=== PATIENT | female | born 1995 | race Caucasian/White ===

== ENCOUNTER 2019-06-09 11:37 | Emergency (ER) | payer BC ==
[~2019-06-09] VITALS: Ht 160 cm; Wt 61.2 kg
[2019-06-09 11:37] VITALS: BP_SYST 118
--- NOTE | 2019-06-09 11:45 | NUR ---
Patient triaged and placed in waiting room. VSS and patient appears in no acute distress at this time. Accompanied by SELF, awaiting available bed, and MD notified of need for MSE.
--- NOTE | 2019-06-09 13:05 | NUR ---
BROUGHT BACK TO [facility] BED AND DR FREEMAN AT BEDSIDE FOR EVALUATION
[2019-06-09 13:31] VITALS: BP_SYST 118
--- NOTE | 2019-06-09 13:31 | NUR ---
Patient given written and verbal discharge instructions and verbalizes understanding. ER MD discussed with patient the results and treatment provided. Patient in stable condition. ID arm band removed. Rx of Tylenol given. Patient educated on pain management and to follow up with PMD. Pain Scale 0/10. Opportunity for questions provided and answered. Medication side effect fact sheet provided.
== END 2019-06-09 13:31 | disposition home or self-care (01) ==
LOC: SED 11:37
DX: O26.891 Other specified pregnancy related conditions, first trimester (principal); R10.2 Pelvic and perineal pain; Z3A.01 Less than 8 weeks gestation of pregnancy
CPT/HCPCS: 36415; 84702-TC; 99283